=== PATIENT | female | born 1995 | race Caucasian/White ===

== ENCOUNTER 2025-01-15 13:09 | Emergency (ER) | payer OTHER ==
[~2025-01-15] VITALS: Ht 157.5 cm; Wt 74.8 kg
[~2025-01-15 13:09] MED LIST changes: -DEXAMETHASONE SOD PHOS INJ 4 MG/ML SDV ONE; -FENTANYL CITRATE/PF 100MCG/2 ML INJ ONE; -LIDOCAINE HCL 2% LOCAL INJ 5 ML SDV VIAL INJ ONE; -MIDAZOLAM HCL 2 MG/2 ML VIAL ONE; -ONDANSETRON HCL INJ 2MG/ML 2ML 2 MG/ML VIAL ONE; -PROPOFOL IV EMULSION 10 MG/ML 20 ML VIAL ONE
[2025-01-15] MEDS: ONDANSETRON HCL INJ 2MG/ML 2ML 2 MG/ML VIAL IV STA (14:48)
[2025-01-15] MEDS: KETOROLAC TROMETHAMINE 30 MG/ML VIAL IV STA (14:48)
[2025-01-15] MEDS: LACTATED RINGER'S 1,000 ML INJ ONE (14:48)
[2025-01-15] MEDS: FENTANYL CITRATE/PF 100MCG/2 ML INJ IV PRN (14:48)
[2025-01-15 15:55] VITALS: PULSE 80; RESP 16; TEMP 97.7; O2SAT 100
== END 2025-01-15 16:18 | disposition home or self-care (01) ==
LOC: ER 14:11
DX: R11.2 Nausea with vomiting, unspecified (principal); G47.00 Insomnia, unspecified; F41.9 Anxiety disorder, unspecified; F31.9 Bipolar disorder, unspecified; Z87.442 Personal history of urinary calculi
CPT/HCPCS: 99283; J1885; J2405; J3010; J7121

== ENCOUNTER → 2025-01-15 | Day surgery (SDC) | payer OTHER ==
[2025-01-11 13:55] LABS: BASOPHILS % 1.2 % (0.0-1.0); EOSINOPHILS % 3.7 % (0.0-6.0); LYMPHOCYTES % 29.0 % (18.0-39.1); MONOCYTES % 5.8 % (4.4-11.3); NEUTROPHILS % 60.1 % (38.7-80.0); RED CELL DISTRIBUTION WIDTH 12.2 % (11.7-14.4)
[2025-01-11 14:21] LABS: EST GLOMERULAR FILTRATION RATE 109.0 ML/MIN (>=60)
[~2025-01-15] MED LIST: ATOMOXETINE HCL40 MG PO; DEXAMETHASONE SOD PHOS INJ 4 MG/ML SDV ONE; FENTANYL CITRATE/PF 100MCG/2 ML INJ ONE; KETOROLAC PO; LAMICTAL5 MG PO; LIDOCAINE HCL 2% LOCAL INJ 5 ML SDV VIAL INJ ONE; MIDAZOLAM HCL 2 MG/2 ML VIAL ONE; ONDANSETRON HCL INJ 2MG/ML 2ML 2 MG/ML VIAL ONE; PROPOFOL IV EMULSION 10 MG/ML 20 ML VIAL ONE; TRAZODONE HCL50 MG PO; TYLENOL#4 PO; VESICARE5 MG PO
[2025-01-15] MEDS: LACTATED RINGER'S 1,000 ML ONE (06:19)
[2025-01-15] MEDS: GENTAMICIN 80MG/NS 100 ML 200 ML IV ONE (06:19)
[2025-01-15] MEDS: PHENAZOPYRIDINE HCL 100 MG TAB ONE (08:45)
[2025-01-15 08:50] VITALS: BP 138/80; PULSE 70; RESP 16; O2SAT 98
[2025-01-15] MEDS: ACETAMINOPHEN/CODEINE 300MG - 30MG TAB ONE (09:05)
== END | disposition home or self-care (01) ==
LOC: OR 05:16
PROVIDERS: ATTEND Urology
DX: Z46.6 Encounter for fitting and adjustment of urinary device (principal); Z87.442 Personal history of urinary calculi; N28.89 Other specified disorders of kidney and ureter; N81.2 Incomplete uterovaginal prolapse; K21.9 Gastro-esophageal reflux disease without esophagitis; F31.9 Bipolar disorder, unspecified; F90.9 Attention-deficit hyperactivity disorder, unspecified type; Z01.812 Encounter for preprocedural laboratory examination; Z01.818 Encounter for other preprocedural examination; Z79.899 Other long term (current) drug therapy
CPT/HCPCS: 36415; 52351; 74018; 74420; 80048; 81025; 83970; 84550; 85025; 87086; C1758; C1769; J1100; J1580; J2003; J2250; J2405; J2704; J3010; J7121